=== PATIENT | male | born 1980 | race Caucasian/White ===

== ENCOUNTER 2016-05-13 18:26 | Emergency (ER) | payer SELFPAY ==
[~2016-05-13] VITALS: Ht 162.6 cm; Wt 59.0 kg
--- NOTE | 2016-05-13 19:14 | Emergency Room Report ---
See Addendum History of Present Illness Time Seen by Edson Presenting Problem in Triage Pt arrived:Walked Presenting Problem:PT FAMILY ADVISES THAT PT HAS BEEN HAVING SEIZURES SINCE THE LAST CHANGE IN HIS MEDS. FAMILY ADVISES THAT THE LAST EPISODE WAS ROUGHLY 10 MINS AGO Onset of symptoms date/time:/ or onset unknown for:MEDICAL HX UNKNOWN Treatment Prior to Arrival: [employer] Provided by: Sepsis Risk Assessment: Temp: 98.2 B/P: 137/82 MAP: 100 Pulse: 84 Resp: 16 Recent fever? N Clinical Suspician of Infection? N Mental Status: 1 - Regular (Normal Baseline) Sepsis Risk:Low Sepsis Risk Have you (or family members/close friends) recently traveled outside the [place]? N If Yes, where/when: Have you had exposure to infectious disease within the past month? N TB? Other? Specify: Patient with longstanding hx of sz d/o, newly on Metoprolol for cephalgia, and since that time has increased number of seizures, with two occurring today. He abraded his tongue this afternoon but has no other pain. He has daily cephalgia, bitemporal, and has no new type of headache at all today. No fever. No new neurological sx. No photophobia. No neck or joint pain. States he was" treated in [facility] with lard" many years ago and remained seizure free for five years. ALLERGIES Coded Allergies: No Known Allergies (05/13/16) Home Medications Reported Medications PHENYTOIN SODIUM EXTENDED (Phenytoin 100MG Capsule) 100 MG PO BID History Medical History General CAD? No Angina: No [place]: No Hypertension? No Hyperlipidemia? No CHF? No DVT? No PE? No COPD? No Asthma? No Anemia? No GERD? No Gastric ulcers? No GI Bleed? No Hernia? No Thyroid Problems? No Hypothyroidism? No CVA? No Seizures? Yes Diabetes? No Renal Insuffiency? No End Stage Renal Disease? No UTI? No Stones? No BPH? No GB Disease: No Nephritic Syndrome? No Asplenia? No Hepatitis? No Sickle Cell Disease? No Arthritis? No Migraines? Yes Cataracts? No Glaucoma? No MRSA? No HIV? No TB? No Anxiety? Yes Depression? Yes Cancer? No More? No Immunization Hx DT/Tetanus Unknown Surgical Hx Previous Surgery?N Social History Smoking Hx Smoker: Never Smoker Tobacco: No Alcohol Alcohol: No Review of Systems All Other Systems Reviewed and Negative Skin see HPI (tongue abrasion) Psychiatric/Neurological see HPI (sz x two today; classic sx) Physical Exam Vital Signs Vital Signs Date Time Temp Pulse Resp B/P Pulse O2 O2 Flow FiO2 Ox Delivery Rate 05/13 194 98.2 84 16 159/94 100 05/13 1833 98.2 84 16 137/82 100 General Appearance normal appearance, WD/WN, no apparent distress Eye Exam - bilateral eye normal exam, bilateral eye PERRL Ear, Nose, Throat hearing grossly normal (tongue abrasion, left) Neck normal inspection, non-tender, supple, full range of motion Respiratory Status Yes: trachea midline, chest symmetrical, non tender chest. No: respiratory distress, tender on palpation, use of accessory muscles, pain on inspiration, pain on expiration, productive cough. Lung Sounds bilateral: normal breath sounds, lungs clear. 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 No Cm was queried for this patient? No Results/Orders Laboratory Tests 05/13/16 1840: Sodium 140, Potassium 3.6, Chloride 101, Carbon Dioxide 33 H, BUN 11, Creatinine 0.9, Estimated Creat Clear 95, Estimated GFR (MDRD) 95, Glucose 88, Calcium 8.6, Total Bilirubin 0.2, AST 30, ALT 23, Alkaline Phosphatase 105, Total Protein 7.5, Albumin 4.1, Globulin 3.4 H, Albumin/Globulin Ratio 1.2, WBC 8.3, RBC 5.06, Hgb 16.3, Hct 47.8, MCV 94.5, RDW 13.5, Plt Count 302, MPV 8.0, Gran % 53.1, Gran # 4.4, Lymphocytes % 38.4, Monocytes % 6.2, Eosinophils % 1.9, Basophils % 0.3, Lymphocytes # 3.2, Monocytes # 0.5, Eosinophils # 0.2, Basophils # 0.0, PUBS MCHC 34.2, MCH 32.3 H 05/13/16 1810: Phenytoin 3.6 L Current Medication Orders Sig/Galdino Start time Last Medication Dose Route Stop Time Status Admin Phenytoin Sodium 100 MG ONCE ONE 05/13 1999 DC 05/13 PO 05/13 Phenytoin Sodium 100 MG ONCE ONE 05/13 1999 DC PO 05/13 2000 Phenytoin Sodium 0 .STK-MED ONE 05/13 1958 DC PO Sodium Chloride 10 ML PRN PRN 05/13 190 AC IV 05/14 184 Orders Procedure Date/time Status DIET-NOTHING BY MOUTH 05/[address] HEAD W/O CONTRAST 05/[address] HEAD REQ 05/13 190 Complete PHENYTOIN (DILANTIN) 05/13 184 Complete IV SALINE LOCK 05/13 184 Active CBC WITH AUTO DIFF 05/13 1845 Complete CHEM 12 PROFILE 05/13 1845 Complete XRAY/CT/US XRAY/CT/US CT head CT interpretation by reviewed by me Time results known: 2008 Departure Departure Time of Disposition 2009 Disposition Still a Patient Clinical Impression Primary Impression: Subtherapeutic serum dilantin level Secondary Impressions: Breakthrough seizure Condition STABLE Referrals Braden Tarango MD (Family) Patient Instructions Seizure Disorder -- Adult Additional Instructions Double dilantin to 100 mg by mouth twice daily, see Dr. Tarango in 2-3 days for recheck, stop Metoprolol Discharge Counseling Counseled pt/family regarding diagnosis, test results, medications/RX, home care, follow up needs Prescriptions Current Visit Scripts PHENYTOIN SODIUM EXTENDED (Dilantin) 100 MG PO BID #60 [facility] ED Critical Care Critical Care No at 2008
--- NOTE | 2016-05-13 19:14 | Emergency Room Report ---
See Addendum History of Present Illness Time Seen by Edson Presenting Problem in Triage Pt arrived:Walked Presenting Problem:PT FAMILY ADVISES THAT PT HAS BEEN HAVING SEIZURES SINCE THE LAST CHANGE IN HIS MEDS. FAMILY ADVISES THAT THE LAST EPISODE WAS ROUGHLY 10 MINS AGO Onset of symptoms date/time:/ or onset unknown for:MEDICAL HX UNKNOWN [facility] to Arrival[facility] Provided by: Sepsis Risk Assessment: Temp: 98.2 B/P: 137/82 MAP: 100 Pulse: 84 Resp: 16 Recent fever? N Clinical Suspician of Infection? N Mental Status: 1 - Regular (Normal Baseline) Sepsis Risk:Low Sepsis Risk Have you (or family members/close friends) recently traveled outside the [place]? N If Yes, where/when: Have you had exposure to infectious disease within the past month? N TB? Other? Specify: Patient with longstanding hx of sz d/o, newly on Metoprolol for cephalgia, and since that time has increased number of seizures, with two occurring today. He abraded his tongue this afternoon but has no other pain. He has daily cephalgia, bitemporal, and has no new type of headache at all today. No fever. No new neurological sx. No photophobia. No neck or joint pain. States he was" treated in [facility] with lard" many years ago and remained seizure free for five years. ALLERGIES Coded Allergies: No Known Allergies (05/13/16) Home Medications Reported Medications PHENYTOIN SODIUM EXTENDED (Phenytoin 100MG Capsule) 100 MG PO BID History Medical History General CAD? No Angina: No [place]: No Hypertension? No Hyperlipidemia? No CHF? No DVT? No PE? No COPD? No Asthma? No Anemia? No GERD? No Gastric ulcers? No GI Bleed? No Hernia? No Thyroid Problems? No Hypothyroidism? No CVA? No Seizures? Yes Diabetes? No Renal Insuffiency? No End Stage Renal Disease? No UTI? No Stones? No BPH? No GB Disease: No Nephritic Syndrome? No Asplenia? No Hepatitis? No Sickle Cell Disease? No Arthritis? No Migraines? Yes Cataracts? No Glaucoma? No MRSA? No HIV? No TB? No Anxiety? Yes Depression? Yes Cancer? No More? No Immunization Hx DT/Tetanus Unknown Surgical Hx Previous Surgery?N Social History Smoking Hx Smoker: Never Smoker Tobacco: No Alcohol Alcohol: No Review of Systems All Other Systems Reviewed and Negative Skin see HPI (tongue abrasion) Psychiatric/Neurological see HPI (sz x two today; classic sx) Physical Exam Vital Signs Vital Signs Date Time Temp Pulse Resp B/P Pulse O2 O2 Flow FiO2 Ox Delivery Rate 05/13 194 98.2 84 16 159/94 100 05/13 1833 98.2 84 16 137/82 100 General Appearance normal appearance, WD/WN, no apparent distress Eye Exam - bilateral eye normal exam, bilateral eye PERRL Ear, Nose, Throat hearing grossly normal (tongue abrasion, left) Neck normal inspection, non-tender, supple, full range of motion Respiratory Status Yes: trachea midline, chest symmetrical, non tender chest. No: respiratory distress, tender on palpation, use of accessory muscles, pain on inspiration, pain on expiration, productive cough. Lung Sounds bilateral: normal breath sounds, lungs clear. 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 No Cm was queried for this patient? No Results/Orders Laboratory Tests 05/13/16 1840: Sodium 140, Potassium 3.6, Chloride 101, Carbon Dioxide 33 H, BUN 11, Creatinine 0.9, Estimated Creat Clear 95, Estimated GFR (MDRD) 95, Glucose 88, Calcium 8.6, Total Bilirubin 0.2, AST 30, ALT 23, Alkaline Phosphatase 105, Total Protein 7.5, Albumin 4.1, Globulin 3.4 H, Albumin/Globulin Ratio 1.2, WBC 8.3, RBC 5.06, Hgb 16.3, Hct 47.8, MCV 94.5, RDW 13.5, Plt Count 302, MPV 8.0, Gran % 53.1, Gran # 4.4, Lymphocytes % 38.4, Monocytes % 6.2, Eosinophils % 1.9, Basophils % 0.3, Lymphocytes # 3.2, Monocytes # 0.5, Eosinophils # 0.2, Basophils # 0.0, PUBS MCHC 34.2, MCH 32.3 H 05/13/16 1810: Phenytoin 3.6 L Current Medication Orders Sig/Galdino Start time Last Medication Dose Route Stop Time Status Admin Phenytoin Sodium 100 MG ONCE ONE 05/13 1999 DC 05/13 PO 05/13 Phenytoin Sodium 100 MG ONCE ONE 05/13 1999 DC PO 05/13 2000 Phenytoin Sodium 0 .STK-MED ONE 05/13 1958 DC PO Sodium Chloride 10 ML PRN PRN 05/13 190 AC IV 05/14 184 Orders Procedure Date/time Status DIET-NOTHING BY MOUTH 05/[address] HEAD W/O CONTRAST 05/[address] HEAD REQ 05/13 190 Complete PHENYTOIN (DILANTIN) 05/13 184 Complete IV SALINE LOCK 05/13 184 Active CBC WITH AUTO DIFF 05/13 1845 Complete CHEM 12 PROFILE 05/13 1845 Complete XRAY/CT/US XRAY/CT/US CT head CT interpretation by reviewed by me Time results known: 2008 Departure Departure Time of Disposition 2009 Disposition Still a Patient Clinical Impression Primary Impression: Subtherapeutic serum dilantin level Secondary Impressions: Breakthrough seizure Condition STABLE Referrals Braden Tarango MD (Family) Patient Instructions Seizure Disorder -- Adult Additional Instructions Double dilantin to 100 mg by mouth twice daily, see Dr. Tarango in 2-3 days for recheck, stop Metoprolol Discharge Counseling Counseled pt/family regarding diagnosis, test results, medications/RX, home care, follow up needs Prescriptions Current Visit Scripts PHENYTOIN SODIUM EXTENDED (Dilantin) 100 MG PO BID #60 [facility] ED Critical Care Critical Care No at 2008
[2016-05-13 19:16] LABS: HEMOGLOBIN 16.3 g/dL (14.1-18.0); LYMPH # 3.2 K/mm3 (0.7-4.5); LYMPH % 38.4 % (10-50)
[2016-05-13] MEDS ORDERED: PHENYTOIN 100M100 MG PO ×2 (19:26)
[2016-05-13] MEDS ORDERED: DILANTIN100 MG PO ×2 (20:00→20:13)
[2016-05-13 20:21] VITALS: BP 125/76
--- NOTE | 2016-05-14 00:08 | RADIOLOGY REPORT PS360 ---
Macro CT HEAD WITHOUT CONTRAST CT BONE WINDOWS ORDERING PHYSICIAN : Aylin Gaytan MD PATIENT AGE: 35 years GENDER: Male HISTORY: SEIZURES seizure activity 3 days PROCEDURE: Routine axial images head with brain & bone windows COMPARISON: None FINDINGS: No acute intracranial findings. No hemorrhage. No mass. No subdural nor extra-axial collection. No mass effect Small 5 mm dense focal old appearing calcification at white matter of the superior right cerebral hemisphere, just deep to the central sulcus. This may reflect an old focus of hemorrhage... Old infection,. Old AVM could also give rise small focal calcification of this character. I see no associated mass effect or mass lesion on this noncontrast study.. Was surprised given history seizures, that there is no previous studies available at this facility for comparison.. If the patient has not had a previous complete workup for his seizures then MRI with and without contrast would be suggested., As MRI is more sensitive. . The ventricles and basal cisterns appear satisfactory. Guido and white matter patterns satisfactory. The posterior fossa appear satisfactory and unremarkable. CT Bone Windows: The skull is intact. The visualized portions of the paranasal sinuses are clear. Mastoid air cells and middle ear & IACs are unremarkable. IMPRESSION: No acute intracranial findings. No mass effect no mass lesion. There is a 5 mm likely old appearing at the right matter at superior right cerebral hemisphere- just deep to the central sulcus. . Nonspecific feature but may reflect old event as discussed in text.. Which could be relevant history of seizures Comparison to outside studies would confirm stability if available. If the patient has not had a thorough workup for seizures I would suggest a follow-up MRI of brain without contrast if one has not been previously performed :
== END 2016-05-13 20:21 | disposition still patient (30) ==
LOC: ER 18:26
PROVIDERS: Emergency Medicine
DX: G40.509 Epileptic seizures related to external causes, not intractable, without status epilepticus (principal); T44.7X5A Adverse effect of beta-adrenoreceptor antagonists, initial encounter; Y92.009 Unspecified place in unspecified non-institutional (private) residence as the place of occurrence of the external cause; T42.0X5A Adverse effect of hydantoin derivatives, initial encounter